=== PATIENT | female | born 1940 | race Caucasian/White ===

== ENCOUNTER 2024-05-08 19:25 | Emergency (ER) | payer OTHER, SELFPAY ==
[2024-05-08 19:35] VITALS: BP 170/117; PULSE 95; RESP 20; TEMP 36.8; O2SAT 100; BMI 24.9
--- NOTE | 2024-05-08 19:51 | ED.GENADULT ---
HPI - General Adult General Chief complaint: Extremity Pain/Injury, Lower Stated complaint: R foot injury Time Seen by Provider: 05/08/24 19:33 History of Present Illness HPI narrative: CC: Right Foot Injury/Pain pt. kicked leg of sofa with outside of right foot. pain worse through the day . cms intact. unable to bear weight on 84-year-old woman presenting to the emergency department with complaint of right foot pain after striking a stool or leg of a sofa the outside of her right foot. Can not really bear weight on it. Pain is worsening over the course the day. Pulses or spasm of pain as well. Accompanied here I believe by her daughter with whom she lives. Related Data Allergies Allergy/AdvReac Type Severity Reaction Status Date / Time Penicillins Allergy Mild Hives Verified 05/08/24 19:37 Review of Systems Status of ROS: Reports: 6 or more systems reviewed and unremarkable except as noted in History and below PFSH PFS Social History Smoking Status: Never smoker How often do you have a drink containing alcohol: never AUDIT-C Alcohol total score: 0 Non-prescribed substance use: denies use Exam Narrative: Exam Narrative: Pleasant. NAD. Slight resting tremor. There is a baseball sized dark bruise on the right upper fibular area. Not particularly tender. Diffusely tender over the dorsum of her right foot. But also the plantar surface but I do not see any bruising here. Const: Vital Signs, click to edit/add: Vital Signs - 24 hr 05/08/24 19:35 Temperature 98.2 F Pulse Rate [Right Pulse Oximeter] 95 Respiratory Rate 20 Blood Pressure [Ri ght Upper Arm] 170/117 H Pulse Oximetry 100 Oxygen Delivery Me thod Room Air Documenting provider has reviewed patient's vital signs: yes Course Vital Signs Vital signs: Initial Vital Signs Temperature 98.2 F 05/08/24 19:35 Temperature Source Temporal Artery Scan 05/08/24 19:35 Pulse Rate 95 05/08/24 19:35 Respiratory Rate 20 05/08/24 19:35 Blood Pressure 170/117 H 05/08/24 19:35 Blood Pressure Mean 134 H 05/08/24 19:35 Blood Pressure Position Sitting 05/08/24 19:35 Pulse Oximetry 100 05/08/24 19:35 Oxygen Delivery Method Room Air 05/08/24 19:35 Vital Signs Temperature 98.2 F 05/08/24 19:35 Pulse Rate 95 05/08/24 19:35 Respiratory Rate 20 05/08/24 19:35 Blood Pressure 170/117 H 05/08/24 19:35 Pulse Oximetry 100 05/08/24 19:35 Oxygen Delivery Method Room Air 05/08/24 19:35 Temperature 98.2 F 05/08/24 19:35 Pulse Rate 95 05/08/24 19:35 Respiratory Rate 20 05/08/24 19:35 Blood Pressure 170/117 H 05/08/24 19:35 Pulse Oximetry 100 05/08/24 19:35 Oxygen Delivery Method Room Air 05/08/24 19:35 Medications Administered Medications: Discontinued Medications Generic Name Dose Route Start Last Admin Trade Name Torin PRN Reason Stop Dose Admin Ibuprofen 600 mg 05/08/24 20:00 05/08/24 20:12 Ibuprofen 200 Mg Tablet PO 05/08/24 20:01 600 mg ONCE ONE Administration Medical Decision Making MDM Narrative Medical decision making narrative: I think discomfort is primarily related to contusion but concerning is inability to bear weight. Plantar pain as well concerning. Would need to evaluate for metatarsal area fracture. Ice pack and ibuprofen. X-ray pending. Three view right foot reviewed by me does not appear to show any acute abnormality. Some osteoarthritic changes. There is an irregularity, a small linear lucency at the distal aspect of the proximal 5th phalanx. I think this is likely vascular channel Discuss these findings with Ms. Gambino. Wrapped foot with Yeison wrap in admits a feels little better. Still generally exquisitely tender to touch. Occasional spasm of pain. She prefers to try crutches as option of offloading; says has used them before. Will give postop sandal as well. She does have a walker available. Radiology over-read later noting no acute abnormality. Pending road test with crutches. Appears to be able to handle crutches well. See patient discharge plan for further discussion. Discharge Plan Discharge Clinical Impression: Contusion, Acute foot pain Patient Disposition: Home w/ Parent or Adult Condition: Stable Additional Instructions: I would continue to ice your foot 2-3 times daily over the next few days. Yeison wrap for comfort as well. Elevated rest. Crutch or use your walker to avoid causing pain. Ibuprofen or naproxen, acetaminophen. Follow-up in 7-10 days if just not improving. Follow Up/Referrals: Giovana Magallanes MD [Primary Care Provider] - Stand Alone Forms: [employer] Info Instructions
--- NOTE | 2024-05-08 20:00 | CRLHL7_ITS ---
For Patients: As a result of the Century Cures Act, medical imaging exams and procedure reports are released immediately into your electronic medical record. You may view this report before your referring provider. If you have questions, please contact your health care provider. INDICATION: Metatarsal pain after trauma COMPARISON: None. TECHNIQUE: Three radiographic view(s) of the right foot. FINDINGS: Diffuse osseous demineralization. Bipartite lateral hallux sesamoid. Small plantar calcaneal enthesophyte. Tiny posterior calcaneal enthesophyte. No evident acute displaced fracture. Mild degenerative change most conspicuous at the 1st metatarsophalangeal joint. IMPRESSION: No evident acute displaced fracture. Dictated by Marlon Bianchi MD @ 05/08/2024 8:57:21 PM (Electronically Signed)
[2024-05-08] MEDS: IBUPROFEN 200 MG TABLET 600 MG PO (20:12)
== END 2024-05-08 21:28 | disposition home or self-care (01) ==
PROVIDERS: Emergency Provider Family Medicine; PCP Internal Medicine
DX: S90.31XA Contusion of right foot, initial encounter (principal); W22.8XXA Striking against or struck by other objects, initial encounter
CPT/HCPCS: 73630; 99283; 99284; A9270